=== PATIENT | female | born 1950 | race American Indian/Alaskan Native ===

== ENCOUNTER 2019-10-05 13:23 | Inpatient (IN) | payer MEDICARE ==
[2019-10-05] MEDS ORDERED: LORazepam 2 MG/ML VIAL IV ONE ×2 (14:12→23:41)
[2019-10-05] MEDS ORDERED: SODIUM CHLORIDE 0.9% 1000 ML 1,000 ML IV ONE (14:12)
--- NOTE | 2019-10-05 14:18 | Emergency Department Report ---
ED Altered Mental Status HPI - General Chief Complaint: Fall Stated Complaint: FALL Time Seen by Provider: 10/05/19 14:07 Source: patient, EMS Mode of arrival: Stretcher Limitations: Physical Limitation - History of Present Illness Initial Comments: Patient is 69 years old female with history of hypertension and dementia. Patient brought to the emergency room from local assisted living facility for evaluation after falls. EMS reported that patient fell twice today. Upon my assessment patient is with significant altered mental status, unable to answer any questions right. Patient is talking to the wall. Patient is delirious. Patient is alert and moving all extremities. MD Complaint: altered mental status, confusion - Related Data Home Medications Medication Instructions Recorded Confirmed Last Taken Acetaminophen [Tylenol] 325 mg PO Q8H PRN 10/06/19 10/06/19 Unknown Glycerin/Propylene Glycol 15 ml OU Q8H PRN 10/06/19 10/06/19 Unknown [Artificial Tears Drops] LORazepam [Lorazepam] 0.5 mg PO BID 10/06/19 10/06/19 Unknown Meloxicam [Mobic] 15 mg PO DAILY 10/06/19 10/06/19 Unknown Mirtazapine [Remeron 30mg TAB] 30 mg PO DAILY 10/06/19 10/06/19 Unknown Multivit-Min/FA/Lycopen/Lutein 1 each PO DAILY 10/06/19 10/06/19 Unknown [Adults 50+ Multivitamin Tablet] QUEtiapine [SEROquel] 200 mg PO HS 10/06/19 10/06/19 Unknown Venlafaxine Xr [Effexor Xr] 150 mg PO QDAY 10/06/19 10/06/19 Unknown Vitamin B-12 2,500 mcg SL 3XW 10/06/19 10/06/19 Unknown diphenhydrAMINE [Benadryl CAP] 25 mg PO QHS 10/06/19 10/06/19 Unknown donepeziL [Aricept] 10 mg PO QDAY 10/06/19 10/06/19 Unknown Allergies Allergy/AdvReac Type Severity Reaction Status Date / Time No Known Allergies Allergy Unverified 09/06/18 12:52 ED Review of Systems ROS: Stated complaint: FALL Other details as noted in HPI Comment: Unobtainable due to pts medical conditions ED Past Medical Hx - Past Medical History Previous Medical History?: Yes Hx Hypertension: Yes Hx Psychiatric Treatment: Yes (depression, anxiety, dementia) Hx Dementia: Yes - Social History Smoking Status: Former Smoker Substance Use Type: None - Medications Home Medications: Home Medications Medication Instructions Recorded Confirmed Last Taken Type Acetaminophen [Tylenol] 325 mg PO Q8H PRN 10/06/19 10/06/19 Unknown History Glycerin/Propylene Glycol 15 ml OU Q8H PRN 10/06/19 10/06/19 Unknown History [Artificial Tears Drops] LORazepam [Lorazepam] 0.5 mg PO BID 10/06/19 10/06/19 Unknown History Meloxicam [Mobic] 15 mg PO DAILY 10/06/19 10/06/19 Unknown History Mirtazapine [Remeron 30mg TAB] 30 mg PO DAILY 10/06/19 10/06/19 Unknown History Multivit-Min/FA/Lycopen/Lutein 1 each PO DAILY 10/06/19 10/06/19 Unknown History [Adults 50+ Multivitamin Tablet] QUEtiapine [SEROquel] 200 mg PO HS 10/06/19 10/06/19 Unknown History Venlafaxine Xr [Effexor Xr] 150 mg PO QDAY 10/06/19 10/06/19 Unknown History Vitamin B-12 2,500 mcg SL 3XW 10/06/19 10/06/19 Unknown History diphenhydrAMINE [Benadryl CAP] 25 mg PO QHS 10/06/19 10/06/19 Unknown History donepeziL [Aricept] 10 mg PO QDAY 10/06/19 10/06/19 Unknown History ED Physical Exam - General Limitations: Physical Limitation General appearance: alert, other (Confused and delirious.) - Head Head exam: Present: atraumatic, normocephalic, normal inspection - Eye Eye exam: Present: normal appearance, PERRL. Absent: conjunctival injection, periorbital swelling, periorbital tenderness Pupils: Present: normal accommodation - ENT ENT exam: Present: mucous membranes dry - Neck Neck exam: Present: normal inspection, full ROM. Absent: tenderness, meningismus, lymphadenopathy - Respiratory Respiratory exam: Present: normal lung sounds bilaterally - Cardiovascular Cardiovascular Exam: Present: regular rate, normal rhythm, normal heart sounds - GI/Abdominal GI/Abdominal exam: Present: soft, normal bowel sounds. Absent: distended, tenderness, guarding, rebound, rigid, organomegaly, mass, bruit, pulsatile mass, hernia - Extremities Exam Extremities exam: Present: normal inspection, full ROM, normal capillary refill. Absent: pedal edema, calf tenderness - Back Exam Back exam: Present: normal inspection, full ROM. Absent: CVA tenderness (R), CVA tenderness (L) - Neurological Exam Neurological exam: Present: alert, altered, CN II-XII intact, reflexes normal. Absent: motor sensory deficit - Psychiatric Psychiatric exam: Present: anxious - Skin Skin exam: Present: warm, dry, intact - Assessment Assessment Interval: Baseline - Level of Consciousness 1a. Level of Consciousness: alert/keenly responsive - LOC Questions 1b. LOC Questions: answers no questions correctly - LOC Command 1c. LOC Commands: performs no tasks correctly - Best Gaze 2. Best Gaze: normal - Visual 3. Visual: no visual loss - Facial Palsy 4. Facial Palsy: normal symmetrical movement - Motor Arm 5a. Motor Arm Left: no drift 5b. Motor Arm Right: no drift - Motor Leg 6a. Motor Leg Left: no drift 6b. Motor Leg Right: no drift - Limb Ataxia 7. Limb Ataxia: absent - Sensory 8. Sensory: normal - Best Language 9. Best Language: no aphasia - Dysarthria 10. Dysarthria: normal - Extinction and Inattention 11. Extinction/Inattention: no abnormality - Scoring Total Score: 4 Stroke Severity: Minor Stroke ED Course Vital Signs 10/05/19 10/05/19 10/05/19 13:36 13:38 13:59 Temperature 97.5 F L Pulse Rate 89 Respiratory 18 Rate Blood Pressure 137/74 Blood Pressure [Left] O2 Sat by Pulse 98 98 Oximetry 10/05/19 10/05/19 16:21 22:51 Temperature Pulse Rate 87 83 Respiratory 18 16 Rate Blood Pressure Blood Pressure 144/84 134/94 [Left] O2 Sat by Pulse 96 94 Oximetry - Lab Data Result diagrams: 10/06/19 05:38 10/06/19 05:38 Lab Results 10/05/19 10/05/19 10/05/19 Range/Units 15:00 15:00 15:00 WBC 7.1 (4.5-11.0) K/mm3 RBC 4.14 (3.65-5.03) M/mm3 Hgb 12.6 (10.1-14.3) gm/dl Hct 37.4 (30.3-42.9) % MCV 90 (79-97) fl MCH 30 (28-32) pg MCHC 34 (30-34) % RDW 13.5 (13.2-15.2) % Plt Count 186 (140-440) K/mm3 Lymph % (Auto) 28.5 (13.4-35.0) % Elk % (Auto) 15.3 H (0.0-7.3) % Eos % (Auto) 1.0 (0.0-4.3) % Baso % (Auto) 0.4 (0.0-1.8) % Lymph # 2.0 (1.2-5.4) K/mm3 Elk # 1.1 H (0.0-0.8) K/mm3 Eos # 0.1 (0.0-0.4) K/mm3 Baso # 0.0 (0.0-0.1) K/mm3 Seg Neutrophils % 54.8 (40.0-70.0) % Seg Neutrophils # 3.9 (1.8-7.7) K/mm3 Sodium 139 (137-145) mmol/L Potassium 3.0 L (3.6-5.0) mmol/L Chloride 93.5 L (98-107) mmol/L Carbon Dioxide 25 (22-30) mmol/L Anion Gap 24 mmol/L BUN 23 H (7-17) mg/dL Creatinine 1.3 H (0.7-1.2) mg/dL Estimated GFR 40 ml/min BUN/Creatinine Ratio 18 % Glucose 89 (65-100) mg/dL Lactic Acid (0.7-2.0) mmol/L Calcium 9.7 (8.4-10.2) mg/dL Total Bilirubin 0.60 (0.1-1.2) mg/dL Direct Bilirubin < 0.2 (0-0.2) mg/dL Indirect Bilirubin 0.4 mg/dL AST 21 (5-40) units/L ALT 11 (7-56) units/L Alkaline Phosphatase 62 (35-129) units/L Ammonia < 10.0 L (25-60) umol/L Troponin T (0.00-0.029) ng/mL Total Protein 7.0 (6.3-8.2) g/dL Albumin 4.3 (3.9-5) g/dL Albumin/Globulin Ratio 1.6 % Urine Color (Yellow) Urine Turbidity (Clear) Urine pH (5.0-7.0) Ur Specific Robert Lee (1.003-1.030) Urine Protein (Negative) mg/dL Urine Glucose (UA) (Negative) mg/dL Urine Ketones (Negative) mg/dL Urine Blood (Negative) Urine Nitrite (Negative) Urine Bilirubin (Negative) Urine Urobilinogen (<2.0) mg/dL Ur Leukocyte Esterase (Negative) Urine WBC (Auto) (0.0-6.0) /HPF Urine RBC (Auto) (0.0-6.0) /HPF U Epithel Cells (Auto) (0-13.0) /HPF Urine Bacteria (Auto) (Negative) /HPF 10/05/19 10/05/19 10/05/19 Range/Units 15:00 15:00 18:40 WBC (4.5-11.0) K/mm3 RBC (3.65-5.03) M/mm3 Hgb (10.1-14.3) gm/dl Hct (30.3-42.9) % MCV (79-97) fl MCH (28-32) pg MCHC (30-34) % RDW (13.2-15.2) % Plt Count (140-440) K/mm3 Lymph % (Auto) (13.4-35.0) % Elk % (Auto) (0.0-7.3) % Eos % (Auto) (0.0-4.3) % Baso % (Auto) (0.0-1.8) % Lymph # (1.2-5.4) K/mm3 Elk # (0.0-0.8) K/mm3 Eos # (0.0-0.4) K/mm3 Baso # (0.0-0.1) K/mm3 Seg Neutrophils % (40.0-70.0) % Seg Neutrophils # (1.8-7.7) K/mm3 Sodium (137-145) mmol/L Potassium (3.6-5.0) mmol/L Chloride (98-107) mmol/L Carbon Dioxide (22-30) mmol/L Anion Gap mmol/L BUN (7-17) mg/dL Creatinine (0.7-1.2) mg/dL Estimated GFR ml/min BUN/Creatinine Ratio % Glucose (65-100) mg/dL Lactic Acid 1.20 (0.7-2.0) mmol/L Calcium (8.4-10.2) mg/dL Total Bilirubin (0.1-1.2) mg/dL Direct Bilirubin (0-0.2) mg/dL Indirect Bilirubin mg/dL AST (5-40) units/L ALT (7-56) units/L Alkaline Phosphatase (35-129) units/L Ammonia (25-60) umol/L Troponin T < 0.010 (0.00-0.029) ng/mL Total Protein (6.3-8.2) g/dL Albumin (3.9-5) g/dL Albumin/Globulin Ratio % Urine Color Nelsy (Yellow) Urine Turbidity Cloudy (Clear) Urine pH 6.0 (5.0-7.0) Ur Specific Robert Lee 1.013 (1.003-1.030) Urine Protein 30 mg/dl (Negative) mg/dL Urine Glucose (UA) Neg (Negative) mg/dL Urine Ketones 20 (Negative) mg/dL Urine Blood Sm (Negative) Urine Nitrite Neg (Negative) Urine Bilirubin Neg (Negative) Urine Urobilinogen < 2.0 (<2.0) mg/dL Ur Leukocyte Esterase Tr (Negative) Urine WBC (Auto) 46.0 H (0.0-6.0) /HPF Urine RBC (Auto) 2.0 (0.0-6.0) /HPF U Epithel Cells (Auto) < 1.0 (0-13.0) /HPF Urine Bacteria (Auto) 2+ (Negative) /HPF - EKG Data -: EKG Interpreted by Mo EKG shows normal: sinus rhythm Rate: normal Interpretation: no acute changes - Radiology Data Radiology results: report reviewed - Medical Decision Making Patient is 69 years old female with history of hypertension and dementia. Patient brought to the emergency room from local assisted living facility for evaluation after falls. EMS reported that patient fell twice today. Upon my assessment patient is with significant altered mental status, unable to answer any questions right. Patient is talking to the wall. Patient is delirious. Patient is alert and moving all extremities. Patient is very agitated. Patient given Ativan 1 mg x 2 for chemical restraint since patient is dangerous to herself. CT brain is negative for acute finding. Labs reviewed and is unremarkable except for UTI. I discussed the patient with José Miguel Horner, he agreed to admit the patient to medical service for further management. Critical Care Time: Yes Critical care time in (mins) excluding proc time.: 30 Critical care attestation.: If time is entered above; I have spent that time in minutes in the direct care of this critically ill patient, excluding procedure time. ED Disposition Clinical Impression: Altered mental status, UTI (urinary tract infection) Disposition: [id number] OP ADMIT IP TO THIS HOSP Is pt being admited?: Yes Condition: Stable
[2019-10-05 15:11] LABS: Basophils % (Auto) 0.4 % (0.0-1.8); Eosinophils # (Auto) 0.1 K/mm3 (0.0-0.4); Hematocrit 37.4 % (30.3-42.9); Hemoglobin 12.6 gm/dl (10.1-14.3); Lymphocytes % (Auto) 28.5 % (13.4-35.0); Mean Corpuscular HGB Conc 34 % (30-34); Mean Corpuscular Volume 90 fl (79-97); Monocytes # (Auto) 1.1 K/mm3 (0.0-0.8); Monocytes % (Auto) 15.3 % (0.0-7.3); Platelet Count 186 K/mm3 (140-440); Red Blood Count 4.14 M/mm3 (3.65-5.03); Red Cell Distribution Width 13.5 % (13.2-15.2)
[2019-10-05 15:28] LABS: Alanine Aminotransferase 11 units/L (7-56); Albumin 4.3 g/dL (3.9-5); BUN/Creatinine Ratio 18; Blood Urea Nitrogen 23 mg/dL (7-17); Calcium 9.7 mg/dL (8.4-10.2); Hemolysis Index 3
--- NOTE | 2019-10-05 15:31 | XRay Report ---
CHEST 1 VIEW INDICATION: AMS. COMPARISON: 09/06/2018 FINDINGS: SUPPORT DEVICES: None. HEART / MEDIASTINUM: No significant abnormality. LUNGS / PLEURA: No significant pulmonary or pleural abnormality. No pneumothorax. ADDITIONAL FINDINGS: IMPRESSION: 1. No acute cardiopulmonary disease Signer Name: Zelalem Alamo MD Signed: 10/05/2019 3:26 PM Workstation Name: [id number]
[2019-10-05 15:41] LABS: Bilirubin,Direct < 0.2 mg/dL (0-0.2)
--- NOTE | 2019-10-05 17:11 | Cat Scan Report ---
CT HEAD WITHOUT CONTRAST INDICATION / CLINICAL INFORMATION: AMS. TECHNIQUE: All CT scans at this location are performed using CT dose reduction for ALARA by means of automated e xposure control. COMPARISON: Head CT 09/06/2018 FINDINGS: HEMORRHAGE: No evidence of intracranial hemorrhage or extra-axial fluid collection. EXTRA-AXIAL SPACES: Cortical sulci and sylvian fissures are within normal limits for the patient's ag e of 69 years. Basilar cisterns have an unremarkable appearance. VENTRICULAR SYSTEM: The third and lateral ventricles are mildly enlarged reflecting resonance of age related parenchymal volume loss. CEREBRAL PARENCHYMA: Periventricular and deep white matter lucency is observed. This is probably seco ndary to microvascular ischemic change. There is no indication of recent infarction. No areas of ence phalomalacia are identified. MIDLINE SHIFT OR HERNIATION: There is no mass effect. CEREBELLUM / BRAINSTEM: Brainstem and cerebellum have an unremarkable appearance. INTRACRANIAL VESSELS:Calcified atherosclerotic plaque is present along the course of the cavernous se gments of both internal carotid arteries. Similar findings are seen at the distal vertebral arteries. ORBITS: visualized portions of the orbits have an unremarkable appearance. SOFT TISSUES of HEAD: No significant abnormality. CALVARIUM: Evaluation of bone windows reveals no abnormalities. PARANASAL SINUSES / MASTOID AIR CELLS: Retention cysts or polyps are present at the base of the left maxillary sinus. Paranasal sinuses are otherwise free from inflammatory mucosal disease. Mastoid air cells are normally pneumatized. ADDITIONAL FINDINGS: None. IMPRESSION: 1. No acute intracranial abnormality. No significant interval change. Signer Name: Francis Mahan MD Signed: 10/05/2019 5:07 PM Workstation Name: [id number]
[2019-10-05 18:51] LABS: Bacteria,Urine 2+ /HPF (Negative); Bilirubin,Urine NEG (Negative); Blood,Urine SM (Negative); Color,Urine Amber (Yellow); Urobilinogen,Urine < 2.0 mg/dL (<2.0)
[2019-10-05] MEDS ORDERED: cefTRIAXone/NS 1 GM/50 ML 1 GM/50 ML BAG IV ONE ×2 (20:58→22:08)
[2019-10-05] MEDS ORDERED: oxyCODONE /ACETAMINOPHEN 5-325MG TAB PO PRN (21:31)
[2019-10-05] MEDS ORDERED: ONDANSETRON 4 MG/2 ML INJ IV PRN (21:31)
[2019-10-05] MEDS ORDERED: ACETAMINOPHEN 325 MG TAB PO PRN (21:31)
--- NOTE | 2019-10-05 21:31 | History and Physical Report ---
History of Present Illness Date of examination: 10/05/19 Date of admission: 10/05/19 Chief complaint: Altered mental status History of present illness: Patient is a 69-year-old female with hypertension, anxiety, and dementia who presents to ER after complaints of a fall x 2 this evening. EMS notified, and upon arrival the patient was found to be in distress and transported to [facility] for evaluation. Per nursing the patient has experienced increased confusion and decreased verbalization as well as decreased interaction and only complaints was of her wrist. On exam patient is pleasantly confused and unable to contribute to history. Patient found to have UTI and metabolic encephalopathy. Patient admitted to medical floor for further evaluation and treatment due to increased risk of decompensation. No further history obtainable. No prior admission for review. Past History Past Medical History: other (Unobtainable due to mental status) Past Surgical History: Other (Unobtainable due to mental status) Social history: lives with family, other (Unobtainable due to mental status) Family history: other (Unobtainable due to mental status) Medications and Allergies Allergies Allergy/AdvReac Type Severity Reaction Status Date / Time No Known Allergies Allergy Unverified 09/06/18 12:52 Home Medications Medication Instructions Recorded Confirmed Last Taken Type Clindamycin [Clindamycin CAP] 300 mg PO Q8H #21 cap 09/06/18 Unknown Rx Review of Systems ROS unobtainable: due to mental status Exam - Physical Exam Narrative exam: - Physical Exam Narrative exam: General appearance: Present: No distress noted - EENT Eyes: Present: PERRL ENT: hearing intact, clear oral mucosa - Neck Neck: Present: supple, normal ROM - Respiratory Respiratory effort: normal Respiratory: bilateral: Clear to auscultation - Cardiovascular Heart Sounds: Present: S1 & S2. Absent: rub, click - Extremities Extremities: pulses symmetrical, No edema Peripheral Pulses: within normal limits - Abdominal General gastrointestinal: Present: , non-distended, normal bowel sounds genitourinary: Present: normal - Integumentary Integumentary: Present: clear, warm, dry - Musculoskeletal Musculoskeletal: strength equal bilaterally - Psychiatric Psychiatric: appropriate mood - Neurologic Neurologic: , moves all extremities - Constitutional Vitals: Temp Pulse Resp BP Pulse Ox 97.5 F L 87 18 144/84 96 10/05/19 13:38 10/05/19 16:21 10/05/19 16:21 10/05/19 16:21 10/05/19 16:21 Results - Labs CBC & Chem 7: 10/05/19 15:00 10/05/19 15:00 Labs: Laboratory Last Values WBC 7.1 K/mm3 (4.5-11.0) 10/05/19 15:00 RBC 4.14 M/mm3 (3.65-5.03) 10/05/19 15:00 Hgb 12.6 gm/dl (10.1-14.3) 10/05/19 15:00 Hct 37.4 % (30.3-42.9) 10/05/19 15:00 MCV 90 fl (79-97) 10/05/19 15:00 MCH 30 pg (28-32) 10/05/19 15:00 MCHC 34 % (30-34) 10/05/19 15:00 RDW 13.5 % (13.2-15.2) 10/05/19 15:00 Plt Count 186 K/mm3 (140-440) 10/05/19 15:00 Lymph % (Auto) 28.5 % (13.4-35.0) 10/05/19 15:00 Bonner % (Auto) 15.3 % (0.0-7.3) H 10/05/19 15:00 Eos % (Auto) 1.0 % (0.0-4.3) 10/05/19 15:00 Baso % (Auto) 0.4 % (0.0-1.8) 10/05/19 15:00 Lymph # 2.0 K/mm3 (1.2-5.4) 10/05/19 15:00 Bonner # 1.1 K/mm3 (0.0-0.8) H 10/05/19 15:00 Eos # 0.1 K/mm3 (0.0-0.4) 10/05/19 15:00 Baso # 0.0 K/mm3 (0.0-0.1) 10/05/19 15:00 Seg Neutrophils % 54.8 % (40.0-70.0) 10/05/19 15:00 Seg Neutrophils # 3.9 K/mm3 (1.8-7.7) 10/05/19 15:00 Sodium 139 mmol/L (137-145) 10/05/19 15:00 Potassium 3.0 mmol/L (3.6-5.0) L 10/05/19 15:00 Chloride 93.5 mmol/L (98-107) L 10/05/19 15:00 Carbon Dioxide 25 mmol/L (22-30) 10/05/19 15:00 Anion Gap 24 mmol/L 10/05/19 15:00 BUN 23 mg/dL (7-17) H 10/05/19 15:00 Creatinine 1.3 mg/dL (0.7-1.2) H 10/05/19 15:00 Estimated GFR 40 ml/min 10/05/19 15:00 BUN/Creatinine Ratio 18 % 10/05/19 15:00 Glucose 89 mg/dL (65-100) 10/05/19 15:00 Lactic Acid 1.20 mmol/L (0.7-2.0) 10/05/19 15:00 Calcium 9.7 mg/dL (8.4-10.2) 10/05/19 15:00 Total Bilirubin 0.60 mg/dL (0.1-1.2) 10/05/19 15:00 Direct Bilirubin < 0.2 mg/dL (0-0.2) 10/05/19 15:00 Indirect Bilirubin 0.4 mg/dL 10/05/19 15:00 AST 21 units/L (5-40) 10/05/19 15:00 ALT 11 units/L (7-56) 10/05/19 15:00 Alkaline Phosphatase 62 units/L (35-129) 10/05/19 15:00 Ammonia < 10.0 umol/L (25-60) L 10/05/19 15:00 Troponin T < 0.010 ng/mL (0.00-0.029) 10/05/19 15:00 Total Protein 7.0 g/dL (6.3-8.2) 10/05/19 15:00 Albumin 4.3 g/dL (3.9-5) 10/05/19 15:00 Albumin/Globulin Ratio 1.6 % 10/05/19 15:00 Urine Color Nelsy (Yellow) 10/05/19 18:40 Urine Turbidity Cloudy (Clear) 10/05/19 18:40 Urine pH 6.0 (5.0-7.0) 10/05/19 18:40 Ur Specific Hammond 1.013 (1.003-1.030) 10/05/19 18:40 Urine Protein 30 mg/dl mg/dL (Negative) 10/05/19 18:40 Urine Glucose (UA) Neg mg/dL (Negative) 10/05/19 18:40 Urine Ketones 20 mg/dL (Negative) 10/05/19 18:40 Urine Blood Sm (Negative) 10/05/19 18:40 Urine Nitrite Neg (Negative) 10/05/19 18:40 Urine Bilirubin Neg (Negative) 10/05/19 18:40 Urine Urobilinogen < 2.0 mg/dL (<2.0) 10/05/19 18:40 Ur Leukocyte Esterase Tr (Negative) 10/05/19 18:40 Urine WBC (Auto) 46.0 /HPF (0.0-6.0) H 10/05/19 18:40 Urine RBC (Auto) 2.0 /HPF (0.0-6.0) 10/05/19 18:40 U Epithel Cells (Auto) < 1.0 /HPF (0-13.0) 10/05/19 18:40 Urine Bacteria (Auto) 2+ /HPF (Negative) 10/05/19 18:40 - Imaging and Cardiology EKG: report reviewed (Sinus rhythm) Chest x-ray: report reviewed CT Scan - head: report reviewed Imaging and Cardiology: CT HEAD WITHOUT CONTRAST INDICATION / CLINICAL INFORMATION: AMS. TECHNIQUE: All CT scans at this location are performed using CT dose reduction for ALARA by means of automated exposure control. COMPARISON: Head CT 09/06/2018 FINDINGS: HEMORRHAGE: No evidence of intracranial hemorrhage or extra-axial fluid collection. EXTRA-AXIAL SPACES: Cortical sulci and sylvian fissures are within normal limits for the patient's age of 69 years. Basilar cisterns have an unremarkable appearance. VENTRICULAR SYSTEM: The third and lateral ventricles are mildly enlarged reflecting resonance of age related parenchymal volume loss. CEREBRAL PARENCHYMA: Periventricular and deep white matter lucency is observed. This is probably secondary to microvascular ischemic change. There is no indication of recent infarction. No areas of encephalomalacia are identified. MIDLINE SHIFT OR HERNIATION: There is no mass effect. CEREBELLUM / BRAINSTEM: Brainstem and cerebellum have an unremarkable appearance. INTRACRANIAL VESSELS:Calcified atherosclerotic plaque is present along the course of the cavernous segments of both internal carotid arteries. Similar findings are seen at the distal vertebral arteries. ORBITS: visualized portions of the orbits have an unremarkable appearance. SOFT TISSUES of HEAD: No significant abnormality. CALVARIUM: Evaluation of bone windows reveals no abnormalities. PARANASAL SINUSES / MASTOID AIR CELLS: Retention cysts or polyps are present at the base of the left maxillary sinus. Paranasal sinuses are otherwise free from inflammatory mucosal disease. Mastoid air cells are normally pneumatized. ADDITIONAL FINDINGS: None. IMPRESSION: 1. No acute intracranial abnormality. No significant interval change. CHEST 1 VIEW INDICATION: AMS. COMPARISON: 09/06/2018 FINDINGS: SUPPORT DEVICES: None. HEART / MEDIASTINUM: No significant abnormality. LUNGS / PLEURA: No significant pulmonary or pleural abnormality. No pneumothorax. ADDITIONAL FINDINGS: IMPRESSION: 1. No acute cardiopulmonary disease Assessment and Plan Assessment and plan: Urinary tract infection -Culture ordered -IV fluids -Supportive care -Continue antibiotics Acute metabolic encephalopathy Likely secondary to above, Supportive care, neuro checks -CT head negative -Blood cultures pending -Neuro checks -Continue supportive care Hypokalemia -Mild -Potassium on admission 3.0 -Received potassium replacement -Follow-up on repeat potassium labs -Continue to monitor replete prn ISSAC -Cr on admission 1.3 -Hydrate with IVF -Avoid nephrotoxic agents -Renal dose all meds DVT prophylaxis -SCDs bilateral extremities Advance Directives: No VTE prophylaxis?: Mechanical Plan of care discussed with patient/family: Yes
[2019-10-05] MEDS: FAMOTIDINE 20 MG/2 ML INJ IV SCH (22:27)
[2019-10-05] MEDS ORDERED: FAMOTIDINE 20 MG/2 ML INJ IV ONE (23:09)
[2019-10-05] MEDS: cefTRIAXone/NS 1 GM/50 ML 1 GM/50 ML BAG IV SCH (23:12)
[2019-10-06] MEDS: POTASSIUM CHLORIDE 10 MEQ 10 MEQ/100 ML BAG IV SCH ×4 (01:03→04:55)
[2019-10-06 06:22] LABS: Basophils % (Auto) 0.5 % (0.0-1.8); Eosinophils # (Auto) 0.2 K/mm3 (0.0-0.4); Hemoglobin 13.2 gm/dl (10.1-14.3); Lymphocytes # (Auto) 1.9 K/mm3 (1.2-5.4); Lymphocytes % (Auto) 23.7 % (13.4-35.0); Mean Corpuscular HGB Conc 33 % (30-34); Mean Corpuscular Volume 91 fl (79-97); Monocytes # (Auto) 1.2 K/mm3 (0.0-0.8); Monocytes % (Auto) 14.9 % (0.0-7.3); Platelet Count 175 K/mm3 (140-440); Red Blood Count 4.39 M/mm3 (3.65-5.03); Red Cell Distribution Width 13.4 % (13.2-15.2)
[2019-10-06 07:08] LABS: BUN/Creatinine Ratio 19; Blood Urea Nitrogen 13 mg/dL (7-17); Calcium 8.5 mg/dL (8.4-10.2); Hemolysis Index 146
[2019-10-06] MEDS: FAMOTIDINE 20 MG/2 ML INJ IV SCH ×2 (09:51→22:27)
[2019-10-06] MEDS: cefTRIAXone/NS 1 GM/50 ML 1 GM/50 ML BAG IV SCH (10:00)
--- NOTE | 2019-10-06 13:05 | Progress Note ---
Assessment and Plan Urinary tract infection -Culture ordered, will follow -cont IV fluids and abx -Supportive care -Continue antibiotics Acute metabolic encephalopathy Likely secondary to above - UTI and underlying dementia, Supportive care, neuro checks -CT head negative -Blood cultures negative -Continue supportive care and treat UTI Hypokalemia -Mild -Potassium on admission 3.0 -Received potassium replacement -Follow-up on repeat potassium labs -Continue to monitor and replete prn ISSAC, improved -Cr on admission 1.3 -Hydrate with IVF -Avoid nephrotoxic agents -Renal dose all meds Severe PCM with BMI 14.5 - nutrition consulted, pt with poor oral intake DVT prophylaxis -SCDs bilateral extremities Advance Directives: No VTE prophylaxis?: Mechanical Plan of care discussed with patient/family: Yes Subjective Date of service: 10/06/19 Interval history: Patient seen and examined Irritated with exam, demented Unable to answer any question due to dementia Objective - Constitutional Vitals: Vital Signs - 12hr 10/06/19 10/06/19 10/06/19 02:38 07:09 07:11 Temperature 98.0 F Pulse Rate 67 50 L Respiratory 18 18 Rate Blood Pressure 175/117 176/111 O2 Sat by Pulse 87 85 Oximetry 10/06/19 10/06/19 10/06/19 08:33 10:00 10:45 Temperature Pulse Rate 77 83 Respiratory Rate Blood Pressure 121/82 O2 Sat by Pulse 99 92 Oximetry General appearance: Present: no acute distress, other (severely malnourished) - EENT Eyes: PERRL, EOM intact ENT: hearing intact, clear oral mucosa Ears: bilateral: normal - Neck Neck: supple, normal ROM - Respiratory Respiratory effort: normal Respiratory: bilateral: CTA - Cardiovascular Rhythm: regular Heart Sounds: Present: S1 & S2. Absent: gallop, rub Extremities: pulses intact, No edema, normal color, Full ROM - Gastrointestinal General gastrointestinal: Present: soft, non-tender, non-distended, normal bowel sounds - Integumentary Integumentary: clear, warm, dry - Musculoskeletal Musculoskeletal: 1, strength equal bilaterally - Neurologic Neurologic: moves all extremities - Psychiatric Psychiatric: no appropriate mood/affect, no intact judgment & insight, no memory intact - Labs CBC & Chem 7: 10/06/19 05:38 10/06/19 05:38 Labs: Abnormal lab results 10/05/19 10/05/19 10/05/19 Range/Units 15:00 15:00 15:00 [place] % (Auto) 15.3 H (0.0-7.3) % [place] # 1.1 H (0.0-0.8) K/mm3 Potassium 3.0 L (3.6-5.0) mmol/L Chloride 93.5 L (98-107) mmol/L Carbon Dioxide (22-30) mmol/L BUN 23 H (7-17) mg/dL Creatinine 1.3 H (0.7-1.2) mg/dL Ammonia < 10.0 L (25-60) umol/L Urine WBC (Auto) (0.0-6.0) /HPF 10/05/19 10/06/19 10/06/19 Range/Units 18:40 05:38 05:38 [place] % (Auto) 14.9 H (0.0-7.3) % [place] # 1.2 H (0.0-0.8) K/mm3 Potassium (3.6-5.0) mmol/L Chloride (98-107) mmol/L Carbon Dioxide 19 L (22-30) mmol/L BUN (7-17) mg/dL Creatinine (0.7-1.2) mg/dL Ammonia (25-60) umol/L Urine WBC (Auto) 46.0 H (0.0-6.0) /HPF - Imaging and cardiology Chest x-ray: report reviewed CT Scan - head: report reviewed
[2019-10-06] MEDS: SODIUM CHLORIDE 0.9% 1000 ML 1,000 ML IV SCH ×2 (22:28)
[2019-10-07] MEDS: FAMOTIDINE 20 MG TAB PO SCH ×2 (09:47→22:51)
[2019-10-07] MEDS: cefTRIAXone/NS 1 GM/50 ML 1 GM/50 ML BAG IV SCH (09:50)
--- NOTE | 2019-10-07 14:00 | Progress Note ---
Assessment and Plan Urinary tract infection -cont IV fluids and abx -Supportive care -Continue antibiotics, negative blood cx Acute metabolic encephalopathy Likely secondary to above - UTI and underlying dementia, Supportive care, neuro checks -CT head negative -Blood cultures negative -Continue supportive care and treat UTI Hypokalemia, resolved -Mild -Potassium on admission 3.0 -Received potassium replacement -Follow-up on repeat potassium labs -Continue to monitor and replete prn ISSAC, resolved -Cr on admission 1.3 -Hydrate with IVF -Avoid nephrotoxic agents -Renal dose all meds Severe PCM with BMI 14.5 - nutrition consulted, pt with poor oral intake DVT prophylaxis -SCDs bilateral extremities Advance Directives: No VTE prophylaxis?: Mechanical Plan of care discussed with patient/family: Yes Disposition: need [facility] per PT eval Subjective Date of service: 10/07/19 Interval history: Patient seen and examined sitting on a chair, demented Unable to answer any question due to dementia Objective - Constitutional Vitals: Vital Signs - 12hr 10/07/19 10/07/19 10/07/19 03:01 03:03 03:11 Temperature 98.8 F Pulse Rate 80 74 Respiratory Rate Blood Pressure 134/81 Blood Pressure [Left] O2 Sat by Pulse 83 L 100 Oximetry 10/07/19 10/07/19 10/07/19 07:40 07:53 08:05 Temperature 97.8 F Pulse Rate 89 Respiratory 18 18 Rate Blood Pressure Blood Pressure 150/84 [Left] O2 Sat by Pulse 99 97 99 Oximetry 10/07/19 10:00 Temperature Pulse Rate 80 Respiratory Rate Blood Pressure Blood Pressure [Left] O2 Sat by Pulse Oximetry - Labs CBC & Chem 7: 10/06/19 05:38 10/06/19 05:38
[2019-10-07] MEDS ORDERED: LORazepam 0.5 MG TAB PO PRN (20:00)
[2019-10-08] MEDS: cefTRIAXone/NS 1 GM/50 ML 1 GM/50 ML BAG IV SCH (09:15)
[2019-10-08] MEDS: FAMOTIDINE 20 MG TAB PO SCH ×2 (09:15→09:54)
[2019-10-08] MEDS ORDERED: HALOPERIDOL LACTATE 5 MG/1 ML INJ IM PRN (11:30)
--- NOTE | 2019-10-08 12:53 | Discharge Summary ---
Providers - Providers Date of Admission: 10/05/19 21:34 Date of discharge: 10/08/19 Attending physician: KVNG CARROLL 10/05/19 22:07 Consult to Case Management [CONS] Routine Services Needed at Discharge: Home Health Services 10/06/19 10:17 Physical Therapy Evaluation and Treat [CONS] Routine Comment: Reason For Exam: fall [facility] Condition: Stable Hospital course: Discharge Diagnosis: Urinary tract infection -cont IV fluids and abx -Supportive care -Continue antibiotics, negative blood cx Acute metabolic encephalopathy Likely secondary to above - UTI and underlying dementia, Supportive care, neuro checks -CT head negative -Blood cultures negative -Continue supportive care and treat UTI Hypokalemia, resolved -Mild -Potassium on admission 3.0 -Received potassium replacement -Follow-up on repeat potassium labs -Continue to monitor and replete prn ISSAC, resolved -Cr on admission 1.3 -Hydrate with IVF -Avoid nephrotoxic agents -Renal dose all meds Severe PCM with BMI 14.5 - nutrition consulted, pt with poor oral intake DVT prophylaxis -SCDs bilateral extremities Advance Directives: No VTE prophylaxis?: Mechanical Plan of care discussed with patient/family: Yes Disposition: assisted living facility with Disposition: DC-30 STILL A PATIENT Time spent for discharge: 34 minutes Core Measure Documentation - Palliative Care Palliative Care/ Comfort Measures: Not Applicable - Core Measures Any of the following diagnoses?: none Exam - Constitutional Vitals: Temp Pulse Resp BP Pulse Ox 98.0 F 98 H 18 151/99 92 10/08/19 07:43 10/08/19 07:43 10/08/19 07:43 10/08/19 07:43 10/08/19 07:43 General appearance: Present: no acute distress, cachectic - EENT Eyes: Present: PERRL ENT: hearing intact, clear oral mucosa - Neck Neck: Present: supple, normal ROM - Respiratory Respiratory effort: normal Respiratory: bilateral: CTA - Cardiovascular Heart Sounds: Present: S1 & S2. Absent: rub, click - Extremities Extremities: pulses symmetrical, No edema Peripheral Pulses: within normal limits - Abdominal General gastrointestinal: Present: soft, non-tender, non-distended, normal bowel sounds - Integumentary Integumentary: Present: clear, warm, dry - Psychiatric Psychiatric: no appropriate mood/affect, no intact judgment & insight - Neurologic Neurologic: CNII-XII intact, moves all extremities Plan Activity: fall precautions Weight Bearing Status: Non-Weight Bearing Diet: advance as tolerated Follow up with: TOSIN MAHAJAN MD [Primary Care Provider] - 3-5 Days Prescriptions: amLODIPine 5 mg PO QDAY #30 tablet Ciprofloxacin HCl [Ciprofloxacin TAB] 500 mg PO Q12HR #10 tab Megestrol Acetate [Megace Es] 625 mg PO DAILY 30 Days Pantoprazole [Protonix] 40 mg PO QDAY #30 tablet
[2019-10-08] MEDS ORDERED: amLODIPine 5 MG TAB PO SCH (13:00)
[2019-10-08 13:40] VITALS: BP 154/90
== END 2019-10-08 16:22 | disposition home health service (06) | DRG 682 ==
LOC: ED 13:23 → 2B-ACE 21:34
PROVIDERS: ADMIT Internal Medicine Geriatric Medicine; ATTEND Internal Medicine
DX: N17.9 Acute kidney failure, unspecified (principal); G93.41 Metabolic encephalopathy; E43 Unspecified severe protein-calorie malnutrition; N39.0 Urinary tract infection, site not specified; Z68.1 Body mass index [BMI] 19.9 or less, adult; I10 Essential (primary) hypertension; E87.6 Hypokalemia; F03.90 Unspecified dementia, unspecified severity, without behavioral disturbance, psychotic disturbance, mood disturbance, and anxiety; W18.39XA Other fall on same level, initial encounter; F41.8 Other specified anxiety disorders; Y93.89 Activity, other specified; Y92.098 Other place in other non-institutional residence as the place of occurrence of the external cause; Y99.8 Other external cause status; Z87.891 Personal history of nicotine dependence
CPT/HCPCS: 36415; 70450; 71045; 80048; 80076; 81001; 82140; 84484; 85025; 87040; 87086; 93005; 93010; 96374; G0378; J0696; J1630; J2060; J3480; J7030